=== PATIENT | female | born 1995 | race Caucasian/White ===

== ENCOUNTER 2021-03-23 14:36 | Emergency (ER) | payer SELFPAY ==
[2021-03-23 15:12] VITALS: BP 108/63; PULSE 110; TEMP 99.8; BMI 25.0
[2021-03-23 18:35] LABS: HCG,QUALITATIVE URINE Negative
[2021-03-23] MEDS ORDERED: ACETAMINOPHEN 500 MG TABLET (FP) PO ONE (19:15)
[2021-03-23 19:22] LABS: EPI CELLS >36 /uL (0-25.1); HYALINE CASTS 1 /uL (0-3.1); PH,URINE 5.5 (5.0-8.0); URINE APPEARANCE Error; URINE BACTERIA 355 /uL (0-1359); URINE BILIRUBIN NEGATIVE (NEGATIVE); URINE COLOR YELLOW; URINE GLUCOSE (UA) NEGATIVE (NEGATIVE); URINE KETONE TRACE (NEGATIVE); URINE LEUK ESTERASE TRACE (NEGATIVE); URINE NITRITE NEGATIVE (NEGATIVE); URINE PROTEIN NEGATIVE (NEGATIVE); URINE RBC 11 /uL (0-23.9); URINE UROBILINOGEN 0.2 mg/dL (0.2-1.0); URINE WBC 41 /uL (0-25.8)
== END 2021-03-23 19:40 | disposition left against medical advice (07) ==
LOC: JERFT 14:36 → JER 14:36
DX: B34.9 Viral infection, unspecified (principal)
CPT/HCPCS: 81003; 84703; 87086; 99283-25

== ENCOUNTER 2021-10-30 16:03 | Emergency (ER) | payer OTHER ==
[2021-10-30 16:30] VITALS: BP 106/70; PULSE 78; TEMP 98.2; BMI 24.1
[2021-10-30] MEDS ORDERED: KETOROLAC TROMETHAMINE 30 MG/1 ML VIAL IM ONE (17:18)
[2021-10-30] MEDS ORDERED: ACETAMINOPHEN WITH CODEINE 300MG/30MG TABLET PO ONE (17:18)
[2021-10-30] MEDS ORDERED: ACETAMINOPHEN WITH CODEINE 300MG/30MG TABLET ONE (17:22)
[2021-10-30] MEDS ORDERED: KETOROLAC TROMETHAMINE 30 MG/1 ML VIAL ONE (17:24)
== END 2021-10-30 17:50 | disposition home or self-care (01) ==
LOC: JER 16:03 → JERFT 16:03
PROC: 3E023GC Introduction of Other Therapeutic Substance into Muscle, Percutaneous Approach (ICD-10-PCS; principal; 2021-10-30)
DX: K08.89 Other specified disorders of teeth and supporting structures (principal)
CPT/HCPCS: 99284-25

== ENCOUNTER 2021-11-09 12:32 | Emergency (ER) | payer OTHER ==
[2021-11-09 12:58] VITALS: BP 107/67; PULSE 87; TEMP 98.1; BMI 23.1
[2021-11-09] MEDS ORDERED: ACETAMINOPHEN 325 MG TABLET (FP) PO ONE (13:20)
[2021-11-09] MEDS ORDERED: ONDANSETRON 4 MG/2 ML VIAL IVPUSH ONE (13:20)
[2021-11-09] MEDS ORDERED: SODIUM CHLORIDE 0.9% 500 ML INFUS.BAG IV ONE (13:20)
[2021-11-09] MEDS ORDERED: ACETAMINOPHEN 325 MG TABLET (FP) ONE (13:30)
[2021-11-09] MEDS ORDERED: ONDANSETRON 4 MG/2 ML VIAL ONE (13:30)
[2021-11-09 13:48] LABS: BASO % 0.6 % (0-2.0); EOS % 0.7 % (0-4.5); HEMATOCRIT 42.6 % (32.4-45.2); HEMOGLOBIN 13.9 GM/dL (10.7-15.3); LYMPH % 23.2 % (8-40); MCH 30.2 pg (25.7-33.7); MCHC 32.8 g/dl (32.0-36.0); MEAN CELL VOLUME 92.2 fl (80-96); MONO % 6.3 % (3.8-10.2); NEUT % 69.2 % (42.8-82.8); PLATELET COUNT 264 10^3/uL (134-434); RBC 4.62 M/mm3 (3.60-5.2); RDW 14.1 % (11.6-15.6)
[2021-11-09 13:49] LABS: HCG,QUALITATIVE URINE Positive
[2021-11-09 13:53] LABS: EPI CELLS >36 /uL (0-25.1); HYALINE CASTS 18 /uL (0-3.1); PH,URINE 5.5 (5.0-8.0); URINE APPEARANCE CLOUDY; URINE BACTERIA 2150 /uL (0-1359); URINE BILIRUBIN NEGATIVE (NEGATIVE); URINE COLOR YELLOW; URINE GLUCOSE (UA) NEGATIVE (NEGATIVE); URINE KETONE TRACE (NEGATIVE); URINE LEUK ESTERASE 3+ (NEGATIVE); URINE NITRITE NEGATIVE (NEGATIVE); URINE PROTEIN TRACE (NEGATIVE); URINE RBC 24 /uL (0-23.9); URINE WBC 468 /uL (0-25.8)
[2021-11-09 14:08] LABS: BLOOD UREA NITROGEN 8.3 mg/dL (7-18); CALCIUM 9.2 mg/dL (8.5-10.1)
[2021-11-09 14:11] LABS: CREATININE 0.7 mg/dL (0.55-1.3)
[2021-11-09 14:13] LABS: BILIRUBIN,TOTAL 0.7 mg/dL (0.2-1); TOT PROT 7.7 g/dl (6.4-8.2)
== END 2021-11-09 14:45 | disposition home or self-care (01) ==
LOC: JER 12:32 → JERFT 12:32
PROC: 3E033GC Introduction of Other Therapeutic Substance into Peripheral Vein, Percutaneous Approach (ICD-10-PCS; principal; 2021-11-09)
DX: O23.40 Unspecified infection of urinary tract in pregnancy, unspecified trimester (principal); Z3A.00 Weeks of gestation of pregnancy not specified
CPT/HCPCS: 36415; 80053; 81003; 84703; 85025; 87077; 87086; 99284-25

== ENCOUNTER 2021-12-02 13:58 | Emergency (ER) | payer OTHER ==
[2021-12-02 14:08] VITALS: TEMP 99.4; BMI 23.3
[2021-12-02 17:47] VITALS: BP 108/62; PULSE 80
== END 2021-12-02 17:46 | disposition home or self-care (01) ==
LOC: JER 13:58
DX: O20.0 Threatened abortion (principal)
CPT/HCPCS: 36415; 76817-TC; 84702; 99284-25

== ENCOUNTER 2022-05-11 15:06 | Emergency (ER) | payer OTHER ==
[2022-05-11 15:32] VITALS: BP 115/77; PULSE 99; RESP 20; TEMP 98; BMI 26.8
[2022-05-11] MEDS ORDERED: ACETAMINOPHEN 500 MG TABLET (FP) PO ONE (16:58)
[2022-05-11] MEDS ORDERED: ACETAMINOPHEN 500 MG TABLET (FP) ONE (18:07)
[2022-05-11 21:13] LABS: URINE APPEARANCE CLEAR; URINE BILIRUBIN NEGATIVE (NEGATIVE); URINE COLOR YELLOW; URINE GLUCOSE (UA) NEGATIVE (NEGATIVE); URINE KETONE NEGATIVE (NEGATIVE); URINE LEUK ESTERASE 2+ (NEGATIVE); URINE NITRITE NEGATIVE (NEGATIVE); URINE PROTEIN NEGATIVE (NEGATIVE); URINE UROBILINOGEN 0.2 mg/dL (0.2-1.0)
[2022-05-11 21:13] LABS: HEMOGLOBIN 10.3 GM/dL (10.7-15.3); MCH 31.5 pg (25.7-33.7); MCHC 34.5 g/dl (32.0-36.0); MEAN CELL VOLUME 91.3 fl (80-96); MEAN PLT VOLUME 8.2 fl (7.5-11.1); PLATELET COUNT 190 10^3/uL (134-434); RBC 3.28 M/mm3 (3.60-5.2); RDW 13.4 % (11.6-15.6); WHITE BLOOD COUNT 12.9 K/mm3 (4.0-10.0)
[2022-05-11 21:19] LABS: INR 0.91 (0.83-1.09); PROTHROMBIN TIME (PATIENT) 10.4 SEC (9.7-13.0)
[2022-05-11 21:21] LABS: ACTIVATED PTT 27.3 SECONDS (25.2-36.5)
[2022-05-11 21:24] LABS: URINE RBC 0-1 /uL (0-23.9)
[2022-05-11 21:26] LABS: EPI CELLS FEW /uL (0-25.1)
[2022-05-11 22:44] LABS: ANISOCYTOSIS 0; MACROCYTOSIS 0; PLATELET ESTIMATE NORMAL
== END 2022-05-11 22:15 | disposition home or self-care (01) ==
LOC: JER 15:06
DX: O26.893 Other specified pregnancy related conditions, third trimester (principal); R10.2 Pelvic and perineal pain; V49.50XA Passenger injured in collision with unspecified motor vehicles in traffic accident, initial encounter; Z3A.31 31 weeks gestation of pregnancy
CPT/HCPCS: 36415; 76815; 81003; 85025; 85610; 85730; 99284-25

== ENCOUNTER 2022-07-13 11:00 | Inpatient (IN) | payer OTHER ==
[2022-07-13] MEDS ORDERED: LACTATED RINGERS SOLUTION 500 ML IV ONE ×2 (11:35→12:35)
[2022-07-13] MEDS: LACTATED RINGERS SOLUTION 1,000 ML IV SCH (14:46)
[2022-07-13] MEDS ORDERED: AMPICILLIN SODIUM 2 GM VIAL ONE (15:31)
[2022-07-13] MEDS ORDERED: BUTORPHANOL TARTRATE 1 MG/ML VIAL IVPB PRN (15:40)
[2022-07-13] MEDS ORDERED: PROMETHAZINE HCL 25 MG/1 ML VIAL IVPUSH PRN (15:40)
[2022-07-13] MEDS ORDERED: AMPICILLIN - 2 GM in SODIUM CHLORIDE 100 ML IVPB ONE (15:42)
[2022-07-13 16:01] VITALS: BMI 29.7
[2022-07-13] MEDS ORDERED: BUTORPHANOL TARTRATE 2 MG/ML VIAL ONE (16:02)
[2022-07-13] MEDS ORDERED: PROMETHAZINE HCL 25 MG/1 ML VIAL ONE (16:02)
[2022-07-13 16:25] LABS: BASO % 0.3 % (0-2.0); EOS % 0.1 % (0-4.5); HEMATOCRIT 31.2 % (32.4-45.2); HEMOGLOBIN 10.6 GM/dL (10.7-15.3); MCH 30.1 pg (25.7-33.7); MEAN CELL VOLUME 88.5 fl (80-96); MEAN PLT VOLUME 8.9 fl (7.5-11.1); MONO % 4.6 % (3.8-10.2); PLATELET COUNT 209 10^3/uL (134-434); RBC 3.53 M/mm3 (3.60-5.2); RDW 13.5 % (11.6-15.6); WHITE BLOOD COUNT 14.6 K/mm3 (4.0-10.0)
[2022-07-13 16:33] LABS: INR 0.95 (0.83-1.09); PROTHROMBIN TIME (PATIENT) 10.9 SEC (9.7-13.0)
[2022-07-13 16:35] LABS: ACTIVATED PTT 26.8 SECONDS (25.2-36.5)
[2022-07-13 16:42] LABS: CALCIUM 8.4 mg/dL (8.5-10.1)
[2022-07-13 16:43] LABS: BLOOD UREA NITROGEN 5.9 mg/dL (7-18)
[2022-07-13 16:46] LABS: CREATININE 0.7 mg/dL (0.55-1.3)
[2022-07-13] MEDS ORDERED: AMPICILLIN SODIUM 1 GM VIAL ONE ×2 (19:47→23:29)
[2022-07-13] MEDS: AMPICILLIN - 1 GM in SODIUM CHLORIDE 100 ML IVPB SCH ×3 (19:51→23:44)
[2022-07-13] MEDS ORDERED: BUTORPHANOL TARTRATE 2 MG/ML VIAL IVPB ONE (21:35)
[2022-07-13] MEDS ORDERED: PROMETHAZINE HCL 25 MG/1 ML VIAL IVPB ONE (21:36)
[2022-07-14] MEDS ORDERED: FENTANYL/BUPIVACAINE/NS/PF - PCEA - 50 ML DISP.SYRIN EP ONE ×4 (00:01→14:56)
[2022-07-14] MEDS ORDERED: OXYTOCIN 20 UNITS in 0.9% NS 20 UNIT/1,000 ML INFUS.BAG IV ONE (00:01)
[2022-07-14] MEDS ORDERED: LIDOCAINE HCL 1% PRESERVATIVE FREE - 30ML VIAL ONE (00:03)
[2022-07-14] MEDS ORDERED: FENTANYL CITRATE/PF 50 MCG/ML VIAL ONE (00:07)
[2022-07-14] MEDS ORDERED: BUPIVACAINE HCL/PF 0.25% (2.5MG/ML) 10 ML VIAL ONE (00:07)
[2022-07-14] MEDS ORDERED: NALOXONE HCL 0.4 MG/ML VIAL IVPUSH PRN (00:34)
[2022-07-14] MEDS ORDERED: FENTANYL/BUPIVACAINE/NS/PF - PCEA - 50 ML DISP.SYRIN EP SCH ×2 (00:45→02:26)
[2022-07-14] MEDS ORDERED: SODIUM CHLORIDE 300 ML IVPB ONE (04:05)
[2022-07-14] MEDS ORDERED: AMPICILLIN SODIUM 1 GM VIAL ONE ×4 (04:05→15:55)
[2022-07-14] MEDS: AMPICILLIN - 1 GM in SODIUM CHLORIDE 100 ML IVPB SCH ×5 (04:09→21:09)
[2022-07-14] MEDS ORDERED: OXYTOCIN 30 UNITS in 0.9% NS 30 UNIT/500 ML INFUS.BAG IVPB SCH (05:45)
[2022-07-14] MEDS: LACTATED RINGERS SOLUTION 1,000 ML IV SCH ×2 (09:00)
[2022-07-14] MEDS ORDERED: IBUPROFEN 600 MG TABLET (FP) PO ONE (20:11)
[2022-07-14] MEDS ORDERED: BENZOCAINE 20% 57 GM BOTTLE TP PRN (20:15)
[2022-07-14] MEDS ORDERED: OXYTOCIN 20 UNITS in 0.9% NS 20 UNIT/1,000 ML INFUS.BAG IV SCH (20:15)
[2022-07-14] MEDS ORDERED: ACETAMINOPHEN 325 MG TABLET (FP) PO PRN (20:15)
[2022-07-14] MEDS ORDERED: METHYLERGONOVINE MALEATE 0.2 MG/1 ML AMP IM PRN (20:15)
[2022-07-14] MEDS ORDERED: BISACODYL 10 MG SUPP.RECT RC PRN (20:15)
[2022-07-14] MEDS ORDERED: BENZOCAINE 28 GM HEMORRHOIDAL OINTMENT TP PRN (20:15)
[2022-07-14] MEDS ORDERED: WITCH HAZEL 50% (TUCKS) 40 PAD/JAR PAD TP PRN (20:15)
[2022-07-14] MEDS: IBUPROFEN 600 MG TABLET (FP) PO SCH (20:16)
[2022-07-14] MEDS ORDERED: METHYLERGONOVINE MALEATE 0.2 MG/1 ML AMP IM ONE (20:16)
[2022-07-14] MEDS ORDERED: CARBOPROST TROMETHAMINE 250 MCG/ML AMPUL IM ONE (20:17)
[2022-07-14] MEDS ORDERED: oxyCODONE HCL 5 MG TABLET ONE (20:32)
[2022-07-14] MEDS: oxyCODONE HCL 5 MG TABLET PO PRN (20:34)
[2022-07-15] MEDS: IBUPROFEN 600 MG TABLET (FP) PO SCH ×4 (02:40→19:36)
[2022-07-15 10:12] LABS: BASO % 0.2 % (0-2.0); EOS % 0.3 % (0-4.5); HEMATOCRIT 25.6 % (32.4-45.2); HEMOGLOBIN 8.5 GM/dL (10.7-15.3); LYMPH % 7.5 % (8-40); MCH 29.9 pg (25.7-33.7); MCHC 33.2 g/dl (32.0-36.0); MEAN PLT VOLUME 8.7 fl (7.5-11.1); MONO % 7.3 % (3.8-10.2); NEUT % 84.7 % (42.8-82.8); PLATELET COUNT 172 10^3/uL (134-434); RBC 2.85 M/mm3 (3.60-5.2); RDW 13.3 % (11.6-15.6); WHITE BLOOD COUNT 19.9 K/mm3 (4.0-10.0)
[2022-07-15] MEDS ORDERED: SENNOSIDES/DOCUSATE COMBO (SENNA PLUS) TABLET (UD) PO PRN (22:00)
[2022-07-16] MEDS: IBUPROFEN 600 MG TABLET (FP) PO SCH ×2 (02:28→07:53)
[2022-07-16] MEDS: oxyCODONE HCL 5 MG TABLET PO PRN (06:07)
[2022-07-16 08:14] VITALS: BP 98/65; PULSE 75; RESP 16; TEMP 98.2
== END 2022-07-16 12:07 | disposition home or self-care (01) | DRG 560 ==
LOC: JDEL 11:00 → JLDR 15:20 → J3W 07-14 22:05
PROVIDERS: ADMIT Obstetrics & Gynecology; ATTEND Specialist
PROC: 10E0XZZ Delivery of Products of Conception, External Approach (ICD-10-PCS; principal; 2022-07-14)
PROC: 0W8NXZZ Division of Female Perineum, External Approach (ICD-10-PCS; 2022-07-14)
PROC: 0KQM0ZZ Repair Perineum Muscle, Open Approach (ICD-10-PCS; 2022-07-14)
PROC: 10907ZC Drainage of Amniotic Fluid, Therapeutic from Products of Conception, Via Natural or Artificial Opening (ICD-10-PCS; 2022-07-14)
DX: O70.1 Second degree perineal laceration during delivery (principal); O99.824 Streptococcus B carrier state complicating childbirth; Z3A.40 40 weeks gestation of pregnancy; Z37.0 Single live birth
CPT/HCPCS: 36415; 59409; 80048; 85025; 85610; 85730; 86780; 86850; 86900; 86901; C9803-CS; U0003; U0005

== ENCOUNTER 2022-09-08 18:09 | Emergency (ER) | payer OTHER ==
[2022-09-08 18:29] VITALS: BP 111/66; PULSE 95; RESP 16; TEMP 98.9; BMI 24.3
[2022-09-08] MEDS ORDERED: FAMOTIDINE 20 MG/50 ML IVPB 20 MG/50 ML MG IVPB ONE ×2 (19:52→20:09)
[2022-09-08] MEDS ORDERED: MAG HYDROX/AL HYDROX/SIMETH -MYLANTA- ORAL SUSPENSION PO ONE (19:52)
[2022-09-08] MEDS ORDERED: ONDANSETRON 4 MG/2 ML VIAL IVPUSH ONE (19:52)
[2022-09-08] MEDS ORDERED: MAG HYDROX/AL HYDROX/SIMETH 30 ML UNIT-DOSE CUP ONE (20:14)
[2022-09-08] MEDS ORDERED: ONDANSETRON 4 MG/2 ML VIAL ONE (20:14)
[2022-09-08 20:21] LABS: BASO % 0.6 % (0-2.0); EOS % 0.5 % (0-4.5); HEMOGLOBIN 10.9 GM/dL (10.7-15.3); LYMPH % 14.7 % (8-40); MCH 28.4 pg (25.7-33.7); MEAN CELL VOLUME 85.9 fl (80-96); MEAN PLT VOLUME 8.2 fl (7.5-11.1); MONO % 6.8 % (3.8-10.2); NEUT % 77.4 % (42.8-82.8); PLATELET COUNT 293 10^3/uL (134-434); RBC 3.84 M/mm3 (3.60-5.2); RDW 13.5 % (11.6-15.6); WHITE BLOOD COUNT 10.6 K/mm3 (4.0-10.0)
[2022-09-08 20:44] LABS: ALBUMIN 3.5 g/dl (3.4-5.0); CALCIUM 8.8 mg/dL (8.5-10.1)
[2022-09-08 20:45] LABS: BLOOD UREA NITROGEN 7.5 mg/dL (7-18)
[2022-09-08 20:47] LABS: CREATININE 0.8 mg/dL (0.55-1.3)
[2022-09-08 20:49] LABS: BILIRUBIN,TOTAL 0.8 mg/dL (0.2-1); TOT PROT 7.4 g/dl (6.4-8.2)
== END 2022-09-08 21:36 | disposition home or self-care (01) ==
LOC: JER 18:09
PROC: 3E033GC Introduction of Other Therapeutic Substance into Peripheral Vein, Percutaneous Approach (ICD-10-PCS; principal; 2022-09-08)
PROC: 3E033GC Introduction of Other Therapeutic Substance into Peripheral Vein, Percutaneous Approach (ICD-10-PCS; 2022-09-08)
DX: K29.00 Acute gastritis without bleeding (principal)
CPT/HCPCS: 36415; 80053; 83690; 84703; 85025; 86850; 86900; 86901; 93005; 93010; 99284-25

== ENCOUNTER 2022-11-30 07:36 | Emergency (ER) | payer OTHER ==
[2022-11-30 07:51] VITALS: BP 101/64; PULSE 92; RESP 20; TEMP 98.4; BMI 23.7
[2022-11-30] MEDS ORDERED: ACETAMINOPHEN 325 MG TABLET (FP) PO ONE (08:40)
[2022-11-30] MEDS ORDERED: SULFAMETHOXAZOLE/TRIMETHOPRIM 800MG/160MG D.S. TABLET PO ONE (08:40)
[2022-11-30] MEDS ORDERED: ACETAMINOPHEN 325 MG TABLET (FP) ONE (08:44)
[2022-11-30] MEDS ORDERED: SULFAMETHOXAZOLE/TRIMETHOPRIM 800MG/160MG D.S. TABLET ONE (08:44)
== END 2022-11-30 09:07 | disposition home or self-care (01) ==
LOC: JER 07:36
PROC: 0J910ZZ Drainage of Face Subcutaneous Tissue and Fascia, Open Approach (ICD-10-PCS; principal; 2022-11-30)
DX: L03.211 Cellulitis of face (principal); L02.01 Cutaneous abscess of face; R68.84 Jaw pain
CPT/HCPCS: 99283-25

== ENCOUNTER 2023-06-27 12:44 | Emergency (ER) | payer SELFPAY ==
[2023-06-27 12:58] VITALS: RESP 19; BMI 24.2
[2023-06-27] MEDS ORDERED: SODIUM CHLORIDE 1,000 ML IV STA (13:40)
[2023-06-27] MEDS ORDERED: ONDANSETRON 4 MG/2 ML VIAL IVPUSH ONE (13:50)
[2023-06-27] MEDS ORDERED: ONDANSETRON 4 MG/2 ML VIAL ONE (14:11)
[2023-06-27 14:26] LABS: HEMATOCRIT 39.1 % (32.4-45.2); HEMOGLOBIN 12.7 GM/dL (10.7-15.3); MCH 28.7 pg (25.7-33.7); MCHC 32.5 g/dl (32.0-36.0); MEAN CELL VOLUME 88.4 fl (80-96); MEAN PLT VOLUME 8.5 fl (7.5-11.1); PLATELET COUNT 237 10^3/uL (134-434); RBC 4.42 M/mm3 (3.60-5.2); RDW 16.7 % (11.6-15.6); WHITE BLOOD COUNT 12.6 K/mm3 (4.0-10.0)
[2023-06-27 14:29] LABS: PH,URINE >= 9.0 (5.0-8.0); URINE APPEARANCE CLEAR; URINE BILIRUBIN NEGATIVE (NEGATIVE); URINE COLOR YELLOW; URINE GLUCOSE (UA) NEGATIVE (NEGATIVE); URINE KETONE NEGATIVE (NEGATIVE); URINE LEUK ESTERASE NEGATIVE (NEGATIVE); URINE NITRITE NEGATIVE (NEGATIVE); URINE PROTEIN TRACE (NEGATIVE); URINE UROBILINOGEN 0.2 mg/dL (0.2-1.0)
[2023-06-27 14:43] LABS: POTASSIUM 4.1 mmol/L (3.5-5.1)
[2023-06-27 14:45] LABS: CALCIUM 8.8 mg/dL (8.5-10.1)
[2023-06-27 14:46] LABS: ALBUMIN 3.7 g/dl (3.4-5.0)
[2023-06-27 14:49] LABS: CREATININE 0.8 mg/dL (0.55-1.3)
[2023-06-27 14:50] LABS: TOT PROT 7.8 g/dl (6.4-8.2)
[2023-06-27 14:51] LABS: ANISOCYTOSIS 0; BILIRUBIN,TOTAL 0.7 mg/dL (0.2-1); HELMET CELLS 0; HOWELL-JOLLY BODIES 0; MACROCYTOSIS 0; OVALOCYTE 0; ROULEAU 0; SICKELED CELLS 0; TARGET CELLS 0; TEAR DROP CELLS 0; TOXIC GRANULATION 0
[2023-06-27 15:32] VITALS: BP 122/78; PULSE 76; TEMP 97.9
== END 2023-06-27 15:32 | disposition home or self-care (01) ==
LOC: JER 12:44
PROC: 3E033GC Introduction of Other Therapeutic Substance into Peripheral Vein, Percutaneous Approach (ICD-10-PCS; principal; 2023-06-27)
PROC: 3E0337Z Introduction of Electrolytic and Water Balance Substance into Peripheral Vein, Percutaneous Approach (ICD-10-PCS; 2023-06-27)
DX: R11.2 Nausea with vomiting, unspecified (principal); R19.7 Diarrhea, unspecified; Z20.822 Contact with and (suspected) exposure to COVID-19
CPT/HCPCS: 0241U-QW; 36415; 80053; 81003; 83690; 84703; 85025; 87086; 99284-25

== ENCOUNTER 2024-03-14 19:07 | Emergency (ER) | payer OTHER ==
[2024-03-14 19:16] VITALS: BP 104/72; PULSE 85; RESP 18; TEMP 99.2; BMI 25.0
[2024-03-14] MEDS ORDERED: IBUPROFEN 600 MG TABLET (FP) PO ONE (20:39)
[2024-03-14] MEDS: IBUPROFEN 600 MG TABLET (FP) PO ONE (20:39)
[2024-03-14 21:18] LABS: THROAT:GRP A STREP NOT DETECTED (NOTDETECTED)
== END 2024-03-14 21:34 | disposition home or self-care (01) ==
LOC: JER 19:07 → JERFT 19:07
DX: R05.9 Cough, unspecified (principal); R09.81 Nasal congestion; J06.9 Acute upper respiratory infection, unspecified; R50.9 Fever, unspecified; Z20.822 Contact with and (suspected) exposure to COVID-19
CPT/HCPCS: 0241U-QW; 87651; 99283-25

== ENCOUNTER 2024-03-17 08:09 | Emergency (ER) | payer OTHER ==
[2024-03-17 08:18] VITALS: BP 111/85; PULSE 80; RESP 18; TEMP 98.4; BMI 29.2
[2024-03-17] MEDS ORDERED: ONDANSETRON 4 MG/2 ML VIAL ONE (09:25)
[2024-03-17] MEDS ORDERED: ACETAMINOPHEN INJECTION 100 ML ONE (09:25)
[2024-03-17] MEDS ORDERED: FAMOTIDINE 20 MG/50 ML IVPB 20 MG/50 ML MG IVPB ONE (09:25)
[2024-03-17 09:36] LABS: BASO % 0.4 % (0-2.0); EOS % 0.7 % (0-4.5); HEMATOCRIT 37.5 % (32.4-45.2); HEMOGLOBIN 12.4 GM/dL (10.7-15.3); LYMPH % 14.1 % (8-40); MCH 29.1 pg (25.7-33.7); MCHC 32.9 g/dl (32.0-36.0); MEAN CELL VOLUME 88.5 fl (80-96); MEAN PLT VOLUME 8.4 fl (7.5-11.1); MONO % 5.9 % (3.8-10.2); NEUT % 78.9 % (42.8-82.8); PLATELET COUNT 198 10^3/uL (134-434); RBC 4.24 M/mm3 (3.60-5.2); RDW 15.4 % (11.6-15.6); WHITE BLOOD COUNT 10.6 K/mm3 (4.0-10.0)
[2024-03-17 09:39] LABS: EPI CELLS 28 /uL (0-25.1); HYALINE CASTS 1 /uL (0-3.1); URINE APPEARANCE CLEAR; URINE BACTERIA 410 /uL (0-1359); URINE BILIRUBIN NEGATIVE (NEGATIVE); URINE COLOR YELLOW; URINE GLUCOSE (UA) NEGATIVE (NEGATIVE); URINE KETONE NEGATIVE (NEGATIVE); URINE LEUK ESTERASE TRACE (NEGATIVE); URINE NITRITE NEGATIVE (NEGATIVE); URINE PROTEIN NEGATIVE (NEGATIVE); URINE RBC 15 /uL (0-23.9); URINE WBC 28 /uL (0-25.8)
[2024-03-17] MEDS: FAMOTIDINE 20 MG/50 ML IVPB 20 MG/50 ML MG IVPB ONE (09:45)
[2024-03-17] MEDS: SODIUM CHLORIDE 0.9% 500 ML INFUS.BAG IV ONE (09:45)
[2024-03-17] MEDS: ACETAMINOPHEN 1000 MG/100 ML BAG IVPB ONE (09:45)
[2024-03-17] MEDS: ONDANSETRON 4 MG/2 ML VIAL IVPUSH ONE (09:45)
[2024-03-17 10:08] LABS: POTASSIUM 4.1 mmol/L (3.5-5.1)
[2024-03-17 10:10] LABS: ALBUMIN 3.3 g/dl (3.4-5.0); CALCIUM 8.4 mg/dL (8.5-10.1)
[2024-03-17 10:14] LABS: CREATININE 0.7 mg/dL (0.55-1.3)
[2024-03-17 10:15] LABS: BILIRUBIN,TOTAL 0.2 mg/dL (0.2-1); TOT PROT 6.8 g/dl (6.4-8.2)
== END 2024-03-17 12:16 | disposition home or self-care (01) ==
LOC: JER 08:09
PROC: 3E033GC Introduction of Other Therapeutic Substance into Peripheral Vein, Percutaneous Approach (ICD-10-PCS; principal; 2024-03-17)
PROC: 3E033NZ Introduction of Analgesics, Hypnotics, Sedatives into Peripheral Vein, Percutaneous Approach (ICD-10-PCS; 2024-03-17)
PROC: 3E033GC Introduction of Other Therapeutic Substance into Peripheral Vein, Percutaneous Approach (ICD-10-PCS; 2024-03-17)
DX: K52.9 Noninfective gastroenteritis and colitis, unspecified (principal); R11.2 Nausea with vomiting, unspecified; R50.9 Fever, unspecified; R10.13 Epigastric pain
CPT/HCPCS: 36415; 80053; 81003; 83690; 84703; 85025; 93005; 93010; 99284-25; J0131